=== PATIENT | male | born 1970 | race Caucasian/White ===

== ENCOUNTER 2016-10-22 05:40 | Inpatient (IN) | payer BC ==
[~2016-10-22] VITALS: Ht 185.4 cm; Wt 148.8 kg
[2016-10-22] VITALS (7 sets, daily range): BP systolic 123–141; BP diastolic 64–88
--- NOTE | ~2016-10-22 | S ---
[facility] [place] [address] SURGICAL PATH RPT PROCEDURE Name: SANTOSH SONG Room #: 412-P DIS IN M.R.#: [id number] Admission: 10/22/16 Date of : 68 Discharge: 10/23/16 Report #: [id number] Path Case #: [id number] PATHOLOGY REPORT COLLECTION DATE: 10/22/2016 RECEIVED DATE: 10/22/2016 SUBMITTING PHYS: Dr. Jaydon Chung OTHER PHYS: Dr. Meron Silva SPECIMEN(S) RECEIVED: A.Gastric sleeve * * * * * * * * * * * * FINAL DIAGNOSIS: Stomach, gastric sleeve, partial sleeve gastrectomy: - No diagnostic abnormalities present. PATHOLOGIST: Emily Mcghee M.D. REPORT ELECTRONICALLY SIGNED BY: Emily Mcghee M.D. DATE/TIME: 10/24/2016 14:14 * * * * * * * * * * * * GROSS PATHOLOGY: The specimen is received in formalin, labeled "Santosh Song, gastric sleeve". Received is a partial gastrectomy specimen with a stapled margin of resection measuring 22.2 x 6.3 x 3.8 cm in greatest dimensions. The serosal surface is pink-lynch to pink-zepeda, smooth and glistening in appearance. Opening the specimen reveals a light lynch, granular-appearing mucosa with normal architectural folds. No distinct nodules or lesions are noted grossly. The specimen is submitted representatively in cassette A1. (CAA; 10/23/2016) CLINICAL HISTORY: Morbid obesity INITIAL CPT CODE(S): A; 34439 Professional services performed by [facility] at [facility] [address], [place] [address] Technical services performed by [facility] at [address] [place] [id number]. Chasity Parada [facility] [address] [place] [address] SURGICAL PATH RPT PROCEDURE Name: SANTOSH SONG Room #: 412-P [facility] IN M.R.#: [id number] Admission: 10/22/16 Date of : 68 Discharge: 10/23/16 Report #: [id number] Path Case #: [id number] [facility] [address] [address] PHONE: [phone] DIRECTOR: Saúl Velazquez M.D. * * * END OF REPORT * * *
--- NOTE | ~2016-10-22 | O ---
[facility] [place] [address] OPERATIVE REPORT Name: SANTOSH GARCIA Room #: 412-P [facility] IN .R.#: [id number] Admission: 10/22/16 Attend Phys: Jaydon Chung MD, F Discharge: 10/23/16 Date of : 68 Report #: [id number] THIS REPORT FOR: //name// CC: Chasity Travisaristeotim Jaydon Chung DATE OF SERVICE: 10/22/2016 SURGEON: Jaydon Chung MD. [employer] ATTENDANT: Meron Silva MD. PREOPERATIVE DIAGNOSES: 1. Morbid obesity (body mass index 45). 2. Arthritis. 3. Gout. 4. Obstructive sleep apnea with CPAP usage. POSTOPERATIVE DIAGNOSES: 1. Morbid obesity (body mass index 45). 2. Arthritis. 3. Gout. 4. Obstructive sleep apnea with CPAP usage. PROCEDURE: Laparoscopic sleeve gastrectomy with EGD. ANESTHESIA: General endotracheal anesthesia and local anesthetic. ESTIMATED BLOOD LOSS: 5 mL. SPECIMEN: Lateral stomach. COMPLICATIONS: None appreciated. INDICATIONS FOR PROCEDURE: This is a 46-year-old male patient, who is morbidly obese with body mass index of 45. He stands 6 feet 1 inch and weighs nearly 350 pounds. This was his maximum weight. He has had difficulty with his weight since early adulthood, and has tried numerous weight loss programs and plans with limited weight loss success. Any amount of weight he has lost, he has quickly regained, plus additional weight, after stopping the modality. The patient presents now for laparoscopic sleeve gastrectomy. He has been cleared for bariatric surgery from a multidisciplinary standpoint. OPERATIVE FINDINGS: On EGD, the patient's esophagus was normal down to the GE junction and Z-line measured at 40 cm from the teeth. There was no evidence for hiatal hernia. The stomach and duodenum to the third portion were without [address] [address] OPERATIVE REPORT Name: SANTOSH GARCIA Room #: 412-P [facility] IN [facility]#: [id number] Admission: 10/22/16 Attend Phys: Jaydon Chung MD, F Discharge: 10/23/16 Date of : 68 Report #: [id number] polyps, masses, diverticula, or ulcers. On retroflexion of the scope, there was no evidence for hiatal hernia. Laparoscopically, the patient had an enlarged stomach as expected. The liver, small bowel, and colon in the surrounding area appeared otherwise normal, and there was no other significant intraabdominal pathology identified. The sleeve staple line was located at 4 cm proximal to the pylorus and 3 cm lateral to the incisura of the stomach. The proximal staple line was located at 1 cm lateral to the GE junction. There was no evidence for a leak on the leak test. Immediately, after applying Tisseel to the sleeve staple line, carbon dioxide was insufflated into the stomach with the endoscope and no air bubbles were seen in the Tisseel, indicative of no leak. In addition, endoluminally, no bleeding was seen within the sleeve. At the conclusion of the operation, the sponge, needle, and instrument counts were correct. There was no evidence for iatrogenic injury. The excised stomach held 1600 mL of fluid on the back table. DESCRIPTION OF PROCEDURE IN DETAIL: After the benefits and risks of the procedure were explained to the patient which include but are not limited to risks of bleeding, infection, postoperative pain, postoperative expectations and risks of DVT and pulmonary embolus, informed consent was obtained. The patient was identified in the preoperative holding area. The patient was given IV antibiotics as documented in the chart in line with SCIP protocol. The patient was then taken to the operating room and was placed in the supine position. The patient was given IV sedation and was intubated without incident. SCDs were placed on the patient's bilateral lower extremities prior to induction of anesthesia. The patient had been placed in the modified low lying dorsal lithotomy position in stirrups on the beanbag. The beanbag and the patient were taped to the bed to secure the patient. A time-out was then performed to correctly identify the patient and procedure. An orogastric tube was placed by anesthesia. A bite block was placed and the fiberoptic EGD scope was passed into the patient's oropharynx, down the esophagus, into the stomach, and into the third portion of the duodenum. Findings are as noted above. The scope was slowly withdrawn into the antrum and the scope was retroflexed. The hiatus was visualized. The scope was then straightened and the end of the gastroscope was placed at the pylorus. The stomach was decompressed with the scope. The patient's abdomen was then prepped and draped in the standard sterile fashion with surgical prep. Local anesthetic was infiltrated into the skin and subcutaneous tissue in the left supraumbilical area where a sharp #15-blade scalpel was used to make a 5-mm incision. The 5-mm Visiport was placed intraperitoneally with the 5-mm 0-degree angled laparoscope. Pneumoperitoneum was then achieved with insufflation of carbon dioxide to 15 mmHg. A 5-mm 30-degree angled laparoscope was then inserted. The 15-mm port was placed in the right supraumbilical area after local anesthetic was infiltrated into the [address] [address] OPERATIVE REPORT Name: SANTOSH GARCIA Room #: 412-P [facility] IN [facility]#: [id number] Admission: 10/22/16 Attend Phys: Jaydon Chung MD, F Discharge: 10/23/16 Date of : 68 Report #: [id number] skin and subcutaneous tissue and an appropriately sized incision was made. Two additional 5 mm ports were placed in the left abdomen after local anesthetic was infiltrated and incisions were made. All ports were placed under direct visualization. The patient was then placed in reverse Trendelenburg position. Local anesthetic was infiltrated into the skin and subcutaneous tissue in the subxiphoid area and a 5-mm incision was made through which a 5-mm obturator was passed into the abdominal cavity through the fascia to create a passageway for the Hesham liver retractor. The retractor was placed to retract the liver anteriorly. The retractor was held in place with the Iron Integrity Assessor apparatus. All abdominal adhesions were then taken down with blunt dissection, sharp dissection and judicious use of the ultrasonic dissector. The gastrosplenic ligament and short gastric vessels were then divided using the ultrasonic dissector with appropriate traction. Bleeding points were made hemostatic with the ultrasonic dissector. Dissection was carried proximally up to the left liz of the diaphragm. The distal end point of dissection was then measured at 4 cm proximal to the pylorus. The short gastric vessels and gastrocolic ligaments were dissected to that level. The stomach was then rotated medially to visualize any posterior attachments/adhesions to the stomach. The adhesions were dissected with a combination of sharp dissection and use of the ultrasonic dissector. The endoscope was then slightly withdrawn to place it along the lesser curvature of the stomach. Suction was applied to the orogastric tube which was then removed, leaving the endoscope in place as a bougie. The gastric sleeve was then created. Two black loads of the powered endoscopic RAMY stapler buttressed with Amelia-Strips were used to staple and divide the stomach 4 cm proximal to the pylorus. Additional green loads buttressed with Amelia-strips were used to staple off the remainder of the stomach using the endoscope as the bougie. Care was taken to ensure that greater than 3 cm of space was present between the incisura and the staple line. The stomach was fully transected and placed in the right upper quadrant of the abdomen for later removal. The staple line of the sleeve was then clipped with Hemoclips along the staple line to provide hemostasis. Tisseel was applied to the entire length of the staple line with the NoteWagonspraPiictu aerosolizer to fully ensure hemostasis. A leak test was performed next. The sleeve was insufflated with the endoscope which was slowly withdrawn. No air bubbles were seen in the Tisseel laparoscopically. Endoluminally, no bleeding was seen. The stomach was fully decompressed and the scope was slowly withdrawn. The Hesham liver retractor was then loosened from the Iron Integrity Assessor apparatus and it was removed without difficulty. The stomach was then removed from the patient's body through the 15-mm port under direct visualization. A small amount stretching of the fascia was required to create an opening large enough for removal of the stomach. After [facility] [address] [place] [address] OPERATIVE REPORT Name: SANTOSH GARCIA Room #: 412-P [facility] IN ..#: [id number] Admission: 10/22/16 Attend Phys: Jaydon Chung MD, F Discharge: 10/23/16 Date of : 68 Report #: [id number] its removal, the 15-mm port site fascial opening was closed with an 0-PDS suture using the Dwight-Tapan laparoscopic fascial closure device. All ports were removed after the abdominal cavity was desufflated. The fascial suture was tied. Interrupted subcuticular 4-0 Monocryl sutures and Dermabond were used to close all skin incisions. The patient tolerated the procedure well. The patient was awakened, extubated and taken to the recovery room in stable condition with no apparent intraoperative complications. <ELECTRONICALLY SIGNED> By: Jaydon Chung MD, FACS 10/23/16 1731 [id number] Jaydon Chung MD, FACS /nt
[~2016-10-22 05:40] MED LIST: ALLOPURINOL 10100 M1 PO; MOBIC7.5 MG PO; TRAZODONE HCL100 MG PO; XALATAN2.5 M1 OPHTHALMIC
[2016-10-23 04:00] VITALS: BP 122/71
[2016-10-23 05:53] LABS: HEMATOCRIT 40.5 % (42.0-52.0); HEMOGLOBIN 13.6 gm/dL (14.0-18.0); MCH 28.9 pg (26.0-34.0); MCHC 33.6 g/dL (28.0-37.0); MCV 86.2 fL (80.0-100.0); PLATELET COUNT 208 thou/uL (150-400); RBC 4.69 mil/uL (4.50-6.00); RDW 14.4 % (10.5-14.5); WBC 12.8 thou/uL (4.0-11.0)
[2016-10-23 06:04] LABS: CALCIUM 8.5 mg/dL (8.5-10.1); POTASSIUM 4.1 mmol/L (3.5-5.1)
[2016-10-23 07:07] LABS: MANUAL DIFF YES
[2016-10-23 08:21] LABS: ABSOLUTE NEUTROPHILS 11.5 thou/uL (1.4-8.2); TOTAL CELL COUNT 100
[2016-10-23 08:25] VITALS: BP 117/61
[2016-10-23] MEDS ORDERED: ZOFRAN ODT4 MG DISSOLVE (08:45)
[2016-10-23 13:15] VITALS: BP 117/61
[2016-10-23 13:35] VITALS: BP 117/61
== END 2016-10-23 13:34 | disposition home or self-care (01) | DRG 621 ==
LOC: TBA 05:40 → OR 05:40 → TBA 05:43 → OR 10:50 → 4N 10:51 → OR 15:33 → 4N 10-23 13:34
PROVIDERS: Surgery
PROC: 0DB64Z3 Excision of Stomach, Percutaneous Endoscopic Approach, Vertical (ICD-10-PCS; principal; 2016-10-22)
PROC: 0DJ08ZZ Inspection of Upper Intestinal Tract, Via Natural or Artificial Opening Endoscopic (ICD-10-PCS; principal; 2016-10-22)
DX: E66.01 Morbid (severe) obesity due to excess calories (principal); M19.90 Unspecified osteoarthritis, unspecified site; E78.1 Pure hyperglyceridemia; M10.9 Gout, unspecified; G47.33 Obstructive sleep apnea (adult) (pediatric); H40.9 Unspecified glaucoma; Z79.899 Other long term (current) drug therapy; Z68.42 Body mass index [BMI] 45.0-49.9, adult; Z82.49 Family history of ischemic heart disease and other diseases of the circulatory system
CPT/HCPCS: 10790; 50010; 50101; 50222; 50249; 50386; 50555; 50739; 50740; 50962; 51437; 52182; 52265; 53307; 53311; 54022; 54118; 55245; 56462; 56525; 56526; 57092; 62110; 62900; 70005